=== PATIENT | female | born 2005 | race Caucasian/White ===

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

== ENCOUNTER 2024-10-28 13:26 | Outpatient (REF) | payer OTHER, SELFPAY ==
[2024-10-28 17:28] LABS: MANUAL DIFF FLAG NO
[2024-10-28 17:56] LABS: Hematocrit 40.7 % (37.0-47.0); Hemoglobin 14.3 g/dl (12.0-16.0); Imm Gran Abs Auto 0.04 X10*3/uL (0.00-0.03); Imm Gran Pct Auto 0.3 % (0.0-0.4); Lymphocytes Absolute Auto 3.6 X10*3/uL (1.2-4.9); Mean Corpuscular HGB Conc 35.1 g/dl (31.0-35.0); Mean Corpuscular Hemoglobin 30.8 pg (27.0-33.0); Mean Corpuscular Volume 87.7 fL (80.0-98.0); NRBC Abs Auto 0.000 X10*3/uL (0.0-0.012); NRBC Pct Auto 0.0 /100WBC (0.0-0.2); Platelet Count 289 X10*3/uL (160-400); Red Blood Count 4.64 X10*6/uL (4.20-5.50); White Blood Count 11.5 X10*3/uL (4.8-10.8)
[2024-10-28 18:13] LABS: Appearance Urine Turbid; Glucose Urine UA Negative (Negative); PH 5.5 (5.0-9.0); Specific Gravity - Urine 1.025 (1.005-1.025); UMIC TRIGGER UACC YES
[2024-10-28 18:20] LABS: Alanine Aminotransferase 33 U/L (0-31); Albumin Level 4.7 g/dL (3.5-5.0); Alkaline Phosphatase 56 U/L (39-117); Anion Gap 14 (12-20); Aspartate Amino Transferase 29 U/L (5-31); Blood Urea Nitrogen 9 mg/dL (9-16); Calcium 9.4 mg/dL (8.4-10.2); Carbon Dioxide 22 mmol/L (22-29); Chloride 108 mmol/L (96-108); Cholesterol 166 mg/dL (<200); Estimated Glomerular Filt Rate > 60; HDL Cholesterol 35 mg/dL (>40); Magnesium 2.1 mg/dL (1.6-2.6); Potassium 3.9 mmol/L (3.3-5.1); Sodium 140 mmol/L (135-145); Total Protein 7.4 g/dL (6.5-8.0); Triglycerides 137 mg/dL (<150)
[2024-10-28 18:51] LABS: Folate 11.2 ng/mL (> or = 4.0); Vitamin B12 467 pg/mL (200-900)
[2024-10-28 18:57] LABS: Other Crystals Urine Present; UACC Culture Trigger YES
[2024-10-29 09:09] LABS: HBS Num1 0.41 mIU/mL (0-7.99); HBsAGNum1 0.32 S/CO (0.00-0.99); HIV Num 1 0.05 S/CO (0.00-0.99); Hepatitis B Surface Antigen Negative (Negative); ~HepC Num1 0.08 S/CO (0.00-0.79); ~Hepatitis B Surface Antibody NONREACTIVE (Nonreactive); ~Hepatitis C Antibody Nonreactive (Nonreactive)
[2024-11-03 01:02] LABS: VITAMIN D (1,25 OH) D3 53 pg/mL; Vit D (1,25-Dihydroxy) Total 53 pg/mL (18-72); Vitamin D (1,25 OH) D2 <8 pg/mL
== END 2024-10-28 13:27 | disposition home or self-care (01) ==
LOC: HO.HKASLDS 13:26
PROVIDERS: PCP Student in an Organized Health Care Education/Training Program; Visit Provider Student in an Organized Health Care Education/Training Program
DX: Z76.89 Persons encountering health services in other specified circumstances (principal); Z13.9 Encounter for screening, unspecified; Z71.9 Counseling, unspecified; Z13.31 Encounter for screening for depression; Z13.1 Encounter for screening for diabetes mellitus; Z13.220 Encounter for screening for lipoid disorders; Z13.6 Encounter for screening for cardiovascular disorders; Z11.3 Encounter for screening for infections with a predominantly sexual mode of transmission; Z11.4 Encounter for screening for human immunodeficiency virus [HIV]; E66.01 Morbid (severe) obesity due to excess calories; R06.83 Snoring; G47.30 Sleep apnea, unspecified; R00.0 Tachycardia, unspecified; R53.83 Other fatigue; Z87.39 Personal history of other diseases of the musculoskeletal system and connective tissue; Z87.2 Personal history of diseases of the skin and subcutaneous tissue; Z68.42 Body mass index [BMI] 45.0-49.9, adult
CPT/HCPCS: 36415; 80053; 80061; 81001; 82607; 82652; 82746; 83036; 83735; 84443; 85025; 86706; 86803; 87086; 87340; 87389

== ENCOUNTER 2024-10-28 13:26 | Outpatient (AMB) | payer OTHER, SELFPAY ==
--- NOTE | 2024-10-28 13:32 | A.OFFPC_ITS ---
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 Intake Note: establish care Shuttle Fixer Required: No Accompanied by: Self / Same As Patient Allergies No Known Allergies Allergy (Verified 10/28/24 13:33) Tobacco use date assessed: 10/28/24 Dental Screening Dental Screen Date: 10/28/24 Did you have a dental visit in the last 12 months?: Yes Did you have a dental problem in the last 6 months where you did not have access to dental care?: No Was dental information given to patient?: Patient has dentist HPI HPI Comments History of Present Illness Details History of Present Illness The patient is a 19-year-old female presenting for a new patient visit and discussion about GLP-1 medication options for weight management. Obesity: - The patient is interested in GLP-1 med ications for weight management and has tried various diets such as keto with limited success. - She has consulted her insurance about coverage for medications like Zepbound, which is the only one covered. - A referral to a mine inspector has been made to assist with dietary management. Sleep Apnea: - The patient reports poor sleep quality , feeling tired during the day, and has a family history of sleep apnea. - A home sleep study has been ordered to evaluate for obstructive sleep apnea. Cellulitis: - The patient had a recent episode of ce llulitis on her abdomen, which progressed to minor sepsis. - She was treated with antibiotics and a CT scan was performed during her ER visit. Scoliosis: - The patient has a history of minor sco liosis from childhood, which she mentioned during the visit. Health Maintenance - Concrete Spreader referral for dietary jesenia gement - Home sleep study ordered to evaluate f or obstructive sleep apnea Review of Systems - General: Reports feeling tired during the day. Denies headaches. - Respiratory: Denies snoring. - Neurological: Denies waking up with he adaches. 10-point ROS reviewed and negative excep t as noted in HPI Past Medical History - History of cellulitis with progression to minor sepsis, treated with antibio tics and CT scan performed - History of minor scoliosis from childh ood Physical Exam General: Well-appearing, in no acute distress. Vital signs: Within normal limits. HEENT: Normocephalic, atraumatic. PERRLA, EOMI. Conjunctiva clear, sclera anicteric. Oropharynx clear, mucous membranes moist. TMs intact bilaterally. Neck: Supple, no lymphadenopathy, no thyromegaly, no JVD or carotid bruits. Cardiovascular: RRR, normal S1/S2, no murmurs, rubs, or gallops. Peripheral pulses 2+ and symmetric. No edema. Respiratory: Lungs clear to auscultation bilaterally, no wheezes, rales, or rhonchi. Normal effort. Abdomen: Soft, non-tender, non-distended. Normoactive bowel sounds. No hepatosplenomegaly, no masses. MSK: Full range of motion, no joint swelling or deformity. Normal gait. Skin: Warm, dry, intact. No rashes, lesions, or pallor. Neuro: Alert and oriented x3. Cranial nerves II-XII intact. Strength 5/5 throughout. Sensation intact. Reflexes 2+ symmetric. Normal coordination and gait. Psych: Appropriate mood and affect. Normal judgment and insight. Discussion Notes I discussed the patient's interest in GLP-1 medications for weight management, explaining the options and insurance coverage for Zepbound. We also talked about the importance of monitoring and the role of a mine inspector. A home sleep study was ordered to assess for sleep apnea, and I explained the process and potential insurance coverage if diagnosed. We reviewed the patient's recent history of cellulitis and sepsis, and I emphasized the importance of follow-up care and preventative measures. Plan 1. Obesity - A comprehensive metabolic panel and ba seline labs will be conducted to assess the patient's current health status before considering GLP-1 medication options. - The patient will be referred to a nutr itionist for dietary management and lifestyle modification support. 2. Sleep Apnea - A home sleep study has been ordered to evaluate for obstructive sleep apnea, with potential insurance coverage for Zepbound if diagnosed. 3. Cellulitis - The patient was treated with antibioti cs and a CT scan during her ER visit for cellulitis and minor sepsis. Follow-up care is advised to monitor for recurrence. 4. Scoliosis - The patient's history of minor scolios is does not currently require intervention but will be monitored as part of her overall health management. Patient Instructions - Follow up with the mine inspector for di etary management. - Complete the home sleep study as instr ucted. - Monitor for any signs of cellulitis re currence and seek medical attention if symptoms return. [facility] Family History (Updated 10/28/24 @ 13:34 by Emily Lee MA) Father No problems noted. Mother No problems noted. Social History (Updated 10/28/24 @ 13:34 by Emily Lee MA) Housing: House Alcohol intake: current Alcohol intake frequency: does not drink Patient Tobacco Use Status: Never used Tobacco service: No Current occupational status: employed Cognitive needs: No Hearing needs: No Vision needs: No Questionnaire PHQ-9 Over the last 2 weeks, how often have you been bothered by any of the following problems? 1. Little interest or pleasure in doing things: not at all 2. Feeling down, depressed, or hopeless: not at all 3. Trouble falling or staying asleep, or sleeping too much: not at all 4. Feeling tired or having little energy: not at all 5. Poor appetite or overeating: not at all 6. Feeling bad about yourself - or that you are a failure or have let yourself o r your family down: not at all 7. Trouble concentrating on things, such as reading the newspaper or watching television: not at all 8. Moving or speaking so slowly that other people could have noticed. Or the opposite - being so fidgety or restless that you have been moving around a lot more than usual: not at all 9. Thoughts that you would be better off or of hurting yourself in some way: not at all Total score: 0 Depression Screening Interpretation: Negative Depression Screening Done: Yes Source: Developed by Drs. Eric Meyer, Alis Madden, Spencer Kennedy and colleagues, with an educational vicki from [employer]. Thrive Questionnaire Date Thrive assessed: 10/28/24 I am a: Patient What is your living situation today?: I have a steady place to live Within the past 12 months, did the food you bought not last and you didn't have the money to get more?: Never true Within the past 12 months, did you worry whether your food would run out before you got money to buy more?: Never true Do you have trouble paying for medicines?: No Do you have trouble getting transportation to medical appointments?: No Do you have trouble paying your heating and electricity bill?: No Do you have trouble taking care of your child, family member or friend?: No Are you currently unemployed and looking for a job?: No Are you interested in more education?: No Please select the resources that you would like help with: None Currently or been in a relationship where the following occur: No concerns reported THRIVE Score: 0 AUDIT C Alcohol Use Questionnaire (AUDIT-C) 1. How often do you have a drink containing alcohol?: Never 3. How often do you have six or more drinks on one occasion?: Never Total Score: 0 GOLD-7 AMB Questionnaire GOLD-7 Date GOLD - 7 assessed: 10/28/24 Feeling nervous, anxious, or on edge: 0 = Not at all Not being able to stop or control worryin = Not at all Worrying too much about different things: 0 = Not at all Trouble relaxin = Not at all Being so restless that it is hard to sit still: 0 = Not at all Becoming easily annoyed or irritable: 0 = Not at all Feeling afraid as if something awful might happen: 0 = Not at all Total GOLD-7 score (0-4 normal; 5-9 mild; 10-14 moderate; 15-21 severe): 0 Source: Developed by Drs. Eric Meyer, Alis Madden, Spencer Kennedy and colleagues, with an educational vicki from [employer]. Physical exam (Primary Care) Tobacco/Smoking Status: Tobacco use Status Patient Tobacco Use Status Never used Tobacco 10/28/24 13:34 Depression Screening Interpretation: Negative Currently or been in a relationship where the following occur: No concerns reported Coding Level of Care Code New Pt Level 3 (47703) Diagnoses Encounter to establish care Z76.89 Encounter for screening, unspecified Z13.9 Counseling, unspecified Z71.9 Screening for depression Z13.31 Screening for diabetes mellitus Z13.1 Screening for lipoid disorders Z13.220 Hypertension screen Z13.6 Routine screening for STI (sexually transmitted infection) Z11.3 Screening for HIV (human immunodeficiency virus) Z11.4 Morbid obesity due to excess calories E66.01 Tachycardia R00.0 Sleep apnea G47.30 Snoring R06.83 Fatigue R53.83 History of scoliosis Z87.39 History of cellulitis Z87.2 Assessment & Plan Assessment & Plan (1) Encounter to establish care: Code(s): Z76.89 - Persons encountering health services in other specified circumstances (2) Encounter for screening, unspecified: Code(s): Z13.9 - Encounter for screening, unspecified (3) Counseling, unspecified: Code(s): Z71.9 - Counseling, unspecified (4) Screening for depression: Code(s): Z13.31 - Encounter for screening for depression (5) Screening for diabetes mellitus: Code(s): Z13.1 - Encounter for screening for diabetes mellitus (6) Screening for lipoid disorders: Code(s): Z13.220 - Encounter for screening for lipoid disorders (7) Hypertension screen: Code(s): Z13.6 - Encounter for screening for cardiovascular disorders (8) Routine screening for STI (sexually transmitted infection): Code(s): Z11.3 - Encounter for screening for infections with a predominantly sexual mode of transmission (9) Screening for HIV (human immunodeficiency virus): Code(s): Z11.4 - Encounter for screening for human immunodeficiency virus [HIV] (10) Morbid obesity due to excess calories: Code(s): E66.01 - Morbid (severe) obesity due to excess calories (11) Tachycardia: Code(s): R00.0 - Tachycardia, unspecified (12) Sleep apnea: Code(s): G47.30 - Sleep apnea, unspecified (13) Snoring: Code(s): R06.83 - Snoring (14) Fatigue: Code(s): R53.83 - Other fatigue (15) History of scoliosis: Code(s): Z87.39 - Personal history of other diseases of the musculoskeletal system and connective tissue (16) History of cellulitis: Code(s): Z87.2 - Personal history of diseases of the skin and subcutaneous tissue Plan Orders: Orders Hepatitis B Surface Antibody Today Z13.9 - Encounter for screening, unspecified, Z76.89 - Persons encountering health services in other specified circumstances Hepatitis B Surface Antigen Today Z13.9 - Encounter for screening, unspecified, Z76.89 - Persons encountering health services in other specified circumstances Hepatitis C Antibody Today Z13.9 - Encounter for screening, unspecified, Z76.89 - Persons encountering health services in other specified circumstances HIV Ab/Ag Today Z13.9 - Encounter for screening, unspecified, Z76.89 - Persons encountering health services in other specified circumstances Lipid Panel Today Z13.9 - Encounter for screening, unspecified, Z76.89 - Persons encountering health services in other specified circumstances Magnesium Today Z13.9 - Encounter for screening, unspecified, Z76.89 - Persons encountering health services in other specified circumstances RT home sleep study Today G47.30 - Sleep apnea, unspecified, R06.83 - Snoring, Z13.9 - Encounter for screening, unspecified, Z76.89 - Persons encountering health services in other specified circumstances Complete Blood Count Auto Diff Today Z13.9 - Encounter for screening, unspecified, Z76.89 - Persons encountering health services in other specified circumstances Comprehensive Met. Panel Today Z13.9 - Encounter for screening, unspecified, Z76.89 - Persons encountering health services in other specified circumstances Hemoglobin A1c Today Z13.9 - Encounter for screening, unspecified, Z76.89 - Persons encountering health services in other specified circumstances TSH reflex Free T4 Today Z13.9 - Encounter for screening, unspecified, Z76.89 - Persons encountering health services in other specified circumstances UA CC w/rflx Micro + Cult Today Z13.9 - Encounter for screening, unspecified, Z76.89 - Persons encountering health services in other specified circumstances Vitamin B12 and Folate Today Z13.9 - Encounter for screening, unspecified, Z76.89 - Persons encountering health services in other specified circumstances Vitamin D 1,25 dihydroxy Today Z13.9 - Encounter for screening, unspecified, Z76.89 - Persons encountering health services in other specified circumstances Referrals Nutrition/Dietitian Referral E66.01 - Morbid (severe) obesity due to excess calories, Z13.9 - Encounter for screening, unspecified, Z76.89 - Persons encountering health services in other specified circumstances
[2024-10-28 13:39] VITALS: BP 116/90; PULSE 101; RESP 16; TEMP 36.8; O2SAT 97; BMI 47.6
== END 2024-10-28 14:03 | disposition home or self-care (01) ==
LOC: HO.HMCFMS 13:27
PROVIDERS: PCP Student in an Organized Health Care Education/Training Program; Visit Provider Student in an Organized Health Care Education/Training Program
DX: E66.01 Morbid (severe) obesity due to excess calories (principal); R00.0 Tachycardia, unspecified; G47.30 Sleep apnea, unspecified; R06.83 Snoring; R53.83 Other fatigue; Z87.39 Personal history of other diseases of the musculoskeletal system and connective tissue; Z87.2 Personal history of diseases of the skin and subcutaneous tissue

== ENCOUNTER 2024-11-09 15:10 | Outpatient (AMB) | payer OTHER, SELFPAY ==
[2024-11-09 15:19] VITALS: BP 124/88; PULSE 124; RESP 16; BMI 48.7
--- NOTE | 2024-11-09 15:19 | A.OFFPC_ITS ---
Vital Signs 11/09/24 15:19 Height 5 ft 7 in Weight 311 lb BMI 48.7 BP 124/88 Blood Pressure Location Lt brachial Position Sitting Respiration 16 Pulse 124 H Intake Visit Reasons: 2 week follow up Intake Note: establish care Rn Documentation Required: No Accompanied by: Self / Same As Patient Allergies No Known Allergies Allergy (Verified 11/09/24 15:19) Tobacco use date assessed: 11/09/24 Dental Screening Dental Screen Date: 11/09/24 Did you have a dental visit in the last 12 months?: Yes Did you have a dental problem in the last 6 months where you did not have access to dental care?: No Was dental information given to patient?: Patient has dentist HPI HPI Comments History of Present Illness Details History of Present Illness The patient is a 19-year-old female presenting with recurrent urinary tract infections and elevated liver enzymes. Recurrent Urinary Tract Infections: - The patient reports experiencing urina ry tract infections approximately once a month for the past four months. - Symptoms include burning sensation dur ing urination and frequent urge to urinate, without associated back pain or systemic symptoms. - The patient has not been formally kecia dominick by a healthcare provider but has taken antibiotics prescribed to her mother and obtained online. Elevated ALT Levels: - The patient's ALT level is slightly el evated at 33 U/L, with the upper limit of normal being 31 U/L. - This elevation is possibly related to dyslipidemia and a potential fatty liver condition. Dyslipidemia: - The patient has elevated low-density l ipoprotein (LDL) cholesterol and low high-density lipoprotein (HDL) cholesterol levels. - This lipid profile suggests a risk for fatty liver disease. Possible Fatty Liver Disease: - The patient is suspected to have fatty liver disease due to elevated liver enzymes and dyslipidemia. Review of Systems - Genitourinary: Reports burning sensati on during urination and frequent urge to urinate. Denies back pain. 10-point ROS reviewed and negative excep t as noted in HPI Past Medical History Health Maintenance - Referral to weight management clinic f or comprehensive weight loss approach. Physical Exam General: Well-appearing, in no acute distress. Vital signs: Within normal limits. HEENT: Normocephalic, atraumatic. PERRLA, EOMI. Conjunctiva clear, sclera anicteric. Oropharynx clear, mucous membranes moist. TMs intact bilaterally. Neck: Supple, no lymphadenopathy, no thyromegaly, no JVD or carotid bruits. Cardiovascular: RRR, normal S1/S2, no murmurs, rubs, or gallops. Peripheral pulses 2+ and symmetric. No edema. Respiratory: Lungs clear to auscultation bilaterally, no wheezes, rales, or r honchi. Normal effort. Abdomen: Soft, non-tender, non-distended. Normoactive bowel sounds. No hepatosplenomegaly, no masses. MSK: Full range of motion, no joint swelling or deformity. Normal gait. Skin: Warm, dry, intact. No rashes, lesions, or pallor. Neuro: Alert and oriented x3. Cranial nerves II-XII intact. Strength 5/5 throughout. Sensation intact. Reflexes 2+ symmetric. Normal coordination and gait. Psych: Appropriate mood and affect. Normal judgment and insight. Plan 1. Recurrent Urinary Tract Infections - The patient will be referred to a urol ogist for further evaluation of recurrent UTIs. - An ultrasound of the bladder will be s cheduled to assess for underlying issues. - The patient will be formally treated w ith antibiotics for the current UTI episode. 2. Elevated Alt Levels - Monitor liver function tests to assess for potential fatty liver disease. 3. Dyslipidemia - Referral to weight management clinic f or comprehensive management of dyslipid emia and associated conditions. 4. Possible Fatty Liver Disease - Monitor liver function tests and manag e dyslipidemia to address potential fatty liver disease. 5.-morbid obesity - refer to medical weight management cli stuart for further eval and management Discussion Notes I discussed with the patient the need for a urologist referral to evaluate her recurrent UTIs and the importance of a bladder ultrasound to identify any underlying issues. We also talked about the elevated ALT levels and the potential for fatty liver disease, emphasizing the role of dyslipidemia in this condition. I recommended a referral to the weight management clinic to address her dyslipidemia and potential fatty liver disease comprehensively. Patient was informed and verbally consented to the use of an ambient scribe for clinic note documentation during this visit. Patient Instructions - Schedule an appointment with a urologi st for further evaluation of UTIs. - Attend the scheduled bladder ultrasoun d appointment. - Follow the prescribed antibiotic regim en for the current UTI. - Follow up with the weight management c linbrittani for comprehensive care. [facility] Medical History (Updated 11/09/24 @ 15:43 by Epifanio Milligan MD) Dysuria UTI (urinary tract infection) Family History Father No problems noted. Mother No problems noted. Social History Housing: House Alcohol intake: current Alcohol intake frequency: does not drink Patient Tobacco Use Status: Never used Tobacco service: No Current occupational status: employed Cognitive needs: No Hearing needs: No Vision needs: No Questionnaire PHQ-9 Over the last 2 weeks, how often have you been bothered by any of the following problems? 1. Little interest or pleasure in doing things: not at all 2. Feeling down, depressed, or hopeless: not at all 3. Trouble falling or staying asleep, or sleeping too much: not at all 4. Feeling tired or having little energy: not at all 5. Poor appetite or overeating: not at all 6. Feeling bad about yourself - or that you are a failure or have let yourself or your family down: not at all 7. Trouble concentrating on things, such as reading the newspaper or watching television: not at all 8. Moving or speaking so slowly that other people could have noticed. Or the opposite - being so fidgety or restless that you have been moving around a lot more than usual: not at all 9. Thoughts that you would be better off or of hurting yourself in some way: not at all Total score: 0 Depression Screening Interpretation: Negative Depression Screening Done: Yes Source: Developed by Drs. Eric Meyer, Alis Madden, Spencer Kennedy and colleagues, with an educational vicki from [employer]. Thrive Questionnaire Date Thrive assessed: 10/28/24 I am a: Patient What is your living situation today?: I have a steady place to live Within the past 12 months, did the food you bought not last and you didn't have the money to get more?: Never true Within the past 12 months, did you worry whether your food would run out before you got money to buy more?: Never true Do you have trouble paying for medicines?: No Do you have trouble getting transportation to medical appointments?: No Do you have trouble paying your heating and electricity bill?: No Do you have trouble taking care of your child, family member or friend?: No Are you currently unemployed and looking for a job?: No Are you interested in more education?: No Please select the resources that you would like help with: None Currently or been in a relationship where the following occur: No concerns reported THRIVE Score: 0 AUDIT C Alcohol Use Questionnaire (AUDIT-C) 1. How often do you have a drink containing alcohol?: Never 3. How often do you have six or more drinks on one occasion?: Never Total Score: 0 GOLD-7 AMB Questionnaire GOLD-7 Date GOLD - 7 assessed: 11/09/24 Feeling nervous, anxious, or on edge: 0 = Not at all Not being able to stop or control worryin = Not at all Worrying too much about different things: 0 = Not at all Trouble relaxin = Not at all Being so restless that it is hard to sit still: 0 = Not at all Becoming easily annoyed or irritable: 0 = Not at all Feeling afraid as if something awful might happen: 0 = Not at all Total GOLD-7 score (0-4 normal; 5-9 mild; 10-14 moderate; 15-21 severe): 0 Source: Developed by Drs. Eric Meyer, Alis Madden, Spencer Kennedy and colleagues, with an educational vicki from [employer]. Physical exam (Primary Care) Vital Signs: Last Vital Signs Pulse 124 H 11/09/24 15:19 Resp 16 11/09/24 15:19 BP 124/88 11/09/24 15:19 BMI result Body Mass Index 48.7 Tobacco/Smoking Status: Tobacco use Status Tobacco use date assessed 11/09/24 11/09/24 15:29 Patient Tobacco Use Status Never used Tobacco 11/09/24 15:29 PHQ-9: PHQ-9 Score PHQ-9: Total score 0 11/09/24 15:29 Depression Screening Interpretation: Negative Thrive Assessment: Date of Thrive Assessment Date Thrive assessed 10/28/24 11/09/24 15:29 Currently or been in a relationship where the following occur: No concerns reported Coding Level of Care Code Est Pt Level 3 (47152) Diagnoses Encounter to discuss test results Z71.2 Hyperlipidemia E78.5 Elevated liver enzymes R74.8 Elevated white blood cell count, unspecified D72.829 Urine findings abnormal R82.90 UTI (urinary tract infection) N39.0 Dysuria R30.0 Assessment & Plan Assessment & Plan (1) Encounter to discuss test results: Code(s): Z71.2 - Person consulting for explanation of examination or test findings (2) Hyperlipidemia: Code(s): E78.5 - Hyperlipidemia, unspecified (3) Elevated liver enzymes: Code(s): R74.8 - Abnormal levels of other serum enzymes (4) Elevated white blood cell count, unspecified: Code(s): D72.829 - Elevated white blood cell count, unspecified (5) Urine findings abnormal: Code(s): R82.90 - Unspecified abnormal findings in urine (6) UTI (urinary tract infection): Code(s): N39.0 - Urinary tract infection, site not specified Category: Medical (7) Dysuria: Code(s): R30.0 - Dysuria Category: Medical Plan Orders: Orders US bladder Today N39.0 - Urinary tract infection, site not specified, R30.0 - Dysuria, R35.0 - Frequency of micturition Referrals Medical Weight Management Referral E66.01 - Morbid (severe) obesity due to excess calories Medications: New nitrofurantoin macrocrystal must administer with a meal/food 100 mg PO BID 14 caps 0RF N39.0 - Urinary tract infection, site not specified
== END 2024-11-09 15:41 | disposition home or self-care (01) ==
LOC: HO.HMCFMS 15:11
PROVIDERS: Visit Provider Student in an Organized Health Care Education/Training Program
DX: E78.5 Hyperlipidemia, unspecified (principal); R74.8 Abnormal levels of other serum enzymes; D72.829 Elevated white blood cell count, unspecified; R82.90 Unspecified abnormal findings in urine; N39.0 Urinary tract infection, site not specified; R30.0 Dysuria

== ENCOUNTER 2024-11-23 14:16 | Outpatient (AMB) | payer OTHER, SELFPAY ==
[2024-11-23 14:19] VITALS: BP 136/75; PULSE 114; TEMP 37.2; O2SAT 99
--- NOTE | 2024-11-23 14:19 | A.OFFPC_ITS ---
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 Glass Required: No Accompanied by: Self / Same As Patient Allergies No Known Allergies Allergy (Verified 11/23/24 14:19) Tobacco use date assessed: 11/23/24 Dental Screening Dental Screen Date: 11/23/24 Did you have a dental visit in the last 12 months?: Yes Did you have a dental problem in the last 6 months where you did not have access to dental care?: No Was dental information given to patient?: Patient has dentist HPI HPI Comments History of Present Illness Details Consent Patient was informed and verbally consented to the use of an ambient scribe for clinic note documentation during this visit. History of Present Illness The patient is a 19-year-old female presenting status post antibiotic treatment for suspected UTI Recurrent urinary tract infections: - The patient reports experiencing recur rent urinary tract infections appr oximately once a month for the past four months, characterized by a burning sensation during urination. - She has self-medicated with antibiotic s obtained online, prescribed by her mother, without formal healthcare intervention. - No formal urological evaluation or corie dder scan has been completed to date. - bladder U/S pending , will consider ur ology referral Review of Systems - Genitourinary: Reports recurrent urina ry tract infections with burning sensation during urination. Denies current symptoms. 10-point ROS reviewed and negative excep t as noted in HPI Past Medical History Health Maintenance - Referral for medical weight management has been provided, with an appointment scheduled at the end of December. Physical Exam General: Well-appearing, in no acute distress. Vital signs: Within normal limits. HEENT: Normocephalic, atraumatic. PERRLA, EOMI. Conjunctiva clear, sclera anicteric. Oropharynx clear, mucous membranes moist. TMs intact bilaterally. Eyes noted to be blue. Neck: Supple, no lymphadenopathy, no thyromegaly, no JVD or carotid bruits. Cardiovascular: RRR, normal S1/S2, no murmurs, rubs, or gallops. Peripheral pulses 2+ and symmetric. No edema. Respiratory: Lungs clear to auscultation bilaterally, no wheezes, rales, or rhonchi. Normal effort. Abdomen: Soft, non-tender, non-distended. Normoactive bowel sounds. No hepatosplenomegaly, no masses. MSK: Full range of motion, no joint swelling or deformity. Normal gait. Skin: Warm, dry, intact. No rashes, lesions, or pallor. Neuro: Alert and oriented x3. Cranial nerves II-XII intact. Strength 5/5 throughout. Sensation intact. Reflexes 2+ symmetric. Normal coordination and gait. Psych: Appropriate mood and affect. Normal judgment and insight. Plan 1. Recurrent Urinary Tract Infections - Plan to refer the patient to a urologi st for further evaluation, including a possible cystoscopy to investigate underlying causes. - An ultrasound of the bladder is recomm ended to assess for any structural abnormalities. Discussion Notes I discussed with the patient the importance of addressing recurrent urinary tract infections and the potential need for a urological evaluation to determine the underlying cause. We also talked about the need for an ultrasound to check for any structural issues with the bladder. The patient was informed about the referral to medical weight management and the upcoming appointment at the end of December. Patient Instructions - Follow up with the urologist as schedu led for further evaluation of urinary tract infections. - Attend the ultrasound appointment to a [facility]. - Keep the appointment with the medical weight management team at the end of December. Medical Decision Making The decision to refer the patient to a urologist was based on the recurrent nature of her urinary tract infections, which have not been formally evaluated or treated by healthcare professionals. An ultrasound was recommended to rule out any structural abnormalities in the bladder that could be contributing to her symptoms. The referral to medical weight management was part of a broader strategy to improve overall health and potentially reduce the frequency of infections. Total time spent caring for the patient today was 30 minutes. This includes time spent before the visit reviewing the chart, time spent documenting, and time spent reviewing laboratory results, diagnostic imaging, medications, performing a medically necessary evaluation, counseling on diagnoses, care coordination. [facility] Medical History Dysuria UTI (urinary tract infection) Family History Father No problems noted. Mother No problems noted. Social History Housing: House Alcohol intake: current Alcohol intake frequency: does not drink Patient Tobacco Use Status: Never used Tobacco service: No Current occupational status: employed Cognitive needs: No Hearing needs: No Vision needs: No Questionnaire PHQ-9 Over the last 2 weeks, how often have you been bothered by any of the following problems? 1. Little interest or pleasure in doing things: not at all 2. Feeling down, depressed, or hopeless: not at all 3. Trouble falling or staying asleep, or sleeping too much: not at all 4. Feeling tired or having little energy: not at all 5. Poor appetite or overeating: not at all 6. Feeling bad about yourself - or that you are a failure or have let yourself or your family down: not at all 7. Trouble concentrating on things, such as reading the newspaper or watching television: not at all 8. Moving or speaking so slowly that other people could have noticed. Or the opposite - being so fidgety or restless that you have been moving around a lot more than usual: not at all 9. Thoughts that you would be better off or of hurting yourself in some way: not at all Total score: 0 Depression Screening Interpretation: Negative Depression Screening Done: Yes Source: Developed by Drs. Eric Meyer, Alis Madden, Spencer Kennedy and colleagues, with an educational vicki from [employer] Thrive Questionnaire Date Thrive assessed: 11/23/24 I am a: Patient What is your living situation today?: I have a steady place to live Within the past 12 months, did the food you bought not last and you didn't have the money to get more?: Never true Within the past 12 months, did you worry whether your food would run out before you got money to buy more?: Never true Do you have trouble paying for medicines?: No Do you have trouble getting transportation to medical appointments?: No Do you have trouble paying your heating and electricity bill?: No Do you have trouble taking care of your child, family member or friend?: No Are you currently unemployed and looking for a job?: No Are you interested in more education?: No Please select the resources that you would like help with: None Currently or been in a relationship where the following occur: No concerns reported THRIVE Score: 0 AUDIT C Alcohol Use Questionnaire (AUDIT-C) 1. How often do you have a drink containing alcohol?: Never 3. How often do you have six or more drinks on one occasion?: Never Total Score: 0 GOLD-7 AMB Questionnaire GOLD-7 Date GOLD - 7 assessed: 11/23/24 Feeling nervous, anxious, or on edge: 0 = Not at all Not being able to stop or control worryin = Not at all Worrying too much about different things: 0 = Not at all Trouble relaxin = Not at all Being so restless that it is hard to sit still: 0 = Not at all Becoming easily annoyed or irritable: 0 = Not at all Feeling afraid as if something awful might happen: 0 = Not at all Total GOLD-7 score (0-4 normal; 5-9 mild; 10-14 moderate; 15-21 severe): 0 Source: Developed by Drs. Eric Meyer, Alis Madden, Spencer Kennedy and colleagues, with an educational vicki from [employer] Physical exam (Primary Care) Vital Signs: Last Vital Signs Temp 98.9 F 11/23/24 14:19 Pulse 114 H 11/23/24 14:19 BP 136/75 11/23/24 14:19 Pulse Ox 99 11/23/24 14:19 Tobacco/Smoking Status: Tobacco use Status Tobacco use date assessed 11/23/24 11/23/24 14:22 Patient Tobacco Use Status Never used Tobacco 11/23/24 14:22 PHQ-9: PHQ-9 Score PHQ-9: Total score 0 11/23/24 14:22 Depression Screening Interpretation: Negative Thrive Assessment: Date of Thrive Assessment Date Thrive assessed 11/23/24 11/23/24 14:22 Currently or been in a relationship where the following occur: No concerns reported Coding Level of Care Code Est Pt Level 4 (30012) Diagnoses UTI (urinary tract infection) N39.0 Morbid obesity due to excess calories E66.01 Assessment & Plan Assessment & Plan (1) UTI (urinary tract infection): Code(s): N39.0 - Urinary tract infection, site not specified Category: Medical (2) Morbid obesity due to excess calories: Code(s): E66.01 - Morbid (severe) obesity due to excess calories Plan
== END 2024-11-23 14:38 | disposition home or self-care (01) ==
LOC: HO.HMCFMS 14:17
PROVIDERS: PCP Student in an Organized Health Care Education/Training Program; Visit Provider Student in an Organized Health Care Education/Training Program
DX: N39.0 Urinary tract infection, site not specified (principal); E66.01 Morbid (severe) obesity due to excess calories